=== PATIENT | male | born 1960 | race Caucasian/White ===

== ENCOUNTER 2022-08-06 16:05 | Emergency (ER) | payer OTHER ==
[2022-08-06] VITALS (9 sets, daily range): BP systolic 124–139; BP diastolic 78–93
[~2022-08-06] VITALS: Ht 175.3 cm; Wt 76.0 kg
[2022-08-06] MEDS ORDERED: ACETAMINOPHEN325 MG PO (16:32)
[2022-08-06 17:25] LABS: BASO% 0.7 % (0-3); HEMATOCRIT 44.4 % (39.0-50.0); HEMOGLOBIN 13.9 g/dl (14.0-18.0); IMMATURE GRANULOCYTES 0.6 % (0.0-5.0); LYMPH% 27.3 % (15-41); MEAN CELL VOLUME 96.9 fL CALC (80.0-100.0); MEAN CORPUSCULAR HGB 30.3 pG CALC (26.0-32.0); MEAN CORPUSCULAR HGB CONC 31.3 g/dL CAL (32.0-36.0); MONO% 8.4 % (2-13); NEUT# 8.55 thou/uL (1.82-7.42); RED BLOOD COUNT 4.58 mill/uL (4.70-6.10); RED CELL DISTRI WIDTH 13.8 % (11.5-15.5)
[2022-08-06 17:39] LABS: ALBUMIN 2.1 g/dL (3.2-5.0); ALKALINE PHOSPHATASE 42 u/l (38-126); ANION GAP 3 (6-22 (CALC)); BUN 12 mg/dL (8-23); BUN/CREATININE RATIO 16 (12-20 (CALC)); CARBON DIOXIDE 30 mmol/l (22-30); CHLORIDE 109 mmol/l (95-108); CREATININE 0.8 mg/dL (0.7-1.3); GFR FOR AFR.AMER. > 60 ML/MIN (>=60 (CALC)); GFR OTHER RACES > 60 ML/MIN (>=60 (CALC)); SGOT/AST 35 u/l (19-48); SODIUM 138 mmol/l (137-146)
[2022-08-06 17:42] LABS: C-REACTIVE PROTEIN < 0.5 mg/dL (0-0.9)
[2022-08-06 19:42] LABS: URINE BILIRUBIN - DIPSTICK NEGATIVE (NEGATIVE); URINE BLOOD DIPSTICK NEGATIVE (NEGATIVE); URINE COLOR YELLOW; URINE GLUCOSE - DIPSTICK NEGATIVE (NEGATIVE); URINE KETONE NEGATIVE (NEGATIVE); URINE LEUK ESTERASE NEGATIVE (NEGATIVE); URINE PROTEIN - DIPSTICK NEGATIVE (NEG-TRACE); URINE SPECIFIC GRAVITY 1.015; URINE UROBILINOGEN - DIPSTICK 0.2 E.U./dL (0.2)
[2022-08-06 19:44] LABS: URINE NITRITE - DIPSTICK NEGATIVE (Negative)
[2022-08-06] MEDS ORDERED: MIRALAX17 GM PO (23:01)
== END 2022-08-06 21:02 | disposition designated cancer center or children's hospital (05) | DRG 948 ==
LOC: ED 16:05
PROVIDERS: Nurse Practitioner
DX: R60.0 Localized edema (principal); K59.00 Constipation, unspecified; K21.9 Gastro-esophageal reflux disease without esophagitis; K76.0 Fatty (change of) liver, not elsewhere classified; Z86.19 Personal history of other infectious and parasitic diseases; Z20.822 Contact with and (suspected) exposure to COVID-19
CPT/HCPCS: Q9967

== ENCOUNTER 2023-03-17 07:21 | Day surgery (SDC) | payer OTHER ==
[~2023-03-17] VITALS: Ht 175.3 cm; Wt 73.5 kg
[~2023-03-17 07:21] MED LIST: ACETAMINOPHEN325 MG PO; ATORVASTATIN CA20 MG PO; GAS RELIEF80 M1; LASIX 20 MG TAB20 MG PO; MIRALAX17 GM PO; OS-CAL 500500 M1 PO; VITAMIN D31000 UNI1 PO
[2023-03-17] MEDS ORDERED: TUMS E-X 750750 MG PO (07:42)
[2023-03-17 10:03] VITALS: BP 117/81
== END 2023-03-17 10:23 | disposition designated cancer center or children's hospital (05) | DRG 387 ==
LOC: ORM 07:21
PROVIDERS: ATTEND Surgery
PROC: 0DBP8ZX Excision of Rectum, Via Natural or Artificial Opening Endoscopic, Diagnostic (ICD-10-PCS; principal; 2023-03-17)
PROC: 0DB98ZX Excision of Duodenum, Via Natural or Artificial Opening Endoscopic, Diagnostic (ICD-10-PCS; 2023-03-17)
PROC: 0DB78ZX Excision of Stomach, Pylorus, Via Natural or Artificial Opening Endoscopic, Diagnostic (ICD-10-PCS; 2023-03-17)
PROC: 0DB68ZX Excision of Stomach, Via Natural or Artificial Opening Endoscopic, Diagnostic (ICD-10-PCS; 2023-03-17)
PROC: 0DB48ZX Excision of Esophagogastric Junction, Via Natural or Artificial Opening Endoscopic, Diagnostic (ICD-10-PCS; 2023-03-17)
DX: K51.211 Ulcerative (chronic) proctitis with rectal bleeding (principal); K64.8 Other hemorrhoids; K21.00 Gastro-esophageal reflux disease with esophagitis, without bleeding; K29.80 Duodenitis without bleeding; K29.50 Unspecified chronic gastritis without bleeding; K31.7 Polyp of stomach and duodenum; K44.9 Diaphragmatic hernia without obstruction or gangrene; Q40.2 Other specified congenital malformations of stomach; B18.2 Chronic viral hepatitis C; E78.5 Hyperlipidemia, unspecified